=== PATIENT | female | born 1945 | race Caucasian/White ===

== ENCOUNTER 2017-06-18 07:57 | Day surgery (SDC) | payer MEDICARE, BC ==
[~2017-06-18] VITALS: Ht 160 cm; Wt 48.3 kg
[~2017-06-18 07:57] MED LIST: KEPPRA PO
[2017-06-18 08:22] VITALS: Ht 160 cm; Wt 48.3 kg
[2017-06-18] MEDS ORDERED: TYKE250 PO (08:39)
[2017-06-18] MEDS ORDERED: [UNRECOGNIZED DRUG - CODE] PO (08:39)
[2017-06-18] MEDS ORDERED: LIDOCAINE 2% (SDV) 5 ML INJ ONE (08:40)
[2017-06-18] MEDS ORDERED: PROPOFOL 60 ML ONE (08:40)
[2017-06-18 08:53] VITALS: BP 140/64; PULSE 61; RESP 22
--- NOTE | 2017-06-18 09:34 | OPPN ---
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
[2017-06-18 09:58] VITALS: BP 115/61; RESP 18
--- NOTE | 2017-06-18 10:12 | GILP ---
DATE OF PROCEDURE: 06/18/2017 SURGEON: Azeem Osorio MD. PROCEDURE PERFORMED: 1. Esophagogastroduodenoscopy and biopsy. 2. Colonoscopy. PREOPERATIVE DIAGNOSES: 1. Chronic heartburn. 2. History of esophageal ulcer. 3. Change in the bowel habits. 4. Rectal bleeding. POSTOPERATIVE DIAGNOSES: 1. Hiatal hernia. 2. Reflux esophagitis. 3. Gastritis with erosions. 4. Gastric mucosal biopsies were taken for Helicobacter pylori test. 5. Colonoscopy all the way to the cecum. 6. Poor prep making the exam somewhat suboptimal. 7. Internal hemorrhoids. 8. No colon neoplasm was identified. INDICATION: Ms Nicolle Ryan is a 72-year-old female patient who had chronic heartburn not responding to therapy. The patient also noticed the change in the bowel habits and rectal bleeding. The patient was scheduled for endoscopy and colonoscopy for further evaluation. The procedures and possible complications were well explained to the patient. She understood and consented to the procedure. DESCRIPTION OF PROCEDURE: Under influence of anesthesia, the gastroscope was carefully introduced into the esophagus. Under direct vision, it was advanced to the stomach, into the pylorus, into the duodenal bulb, and descending duodenum. FINDINGS: ESOPHAGUS: The patient had reflux esophagitis and erosions. STOMACH: The patient had gastritis with erosions. Gastric mucosal biopsies were taken for Helicobacter pylori test. Duodenum was normal. COLONOSCOPY: The colonoscope was carefully introduced in the rectum. Under direct vision, it was advanced all the way to the cecum. FINDINGS: The patient had poor prep making the exam suboptimal. The patient was noted to have internal hemorrhoids. No gross neoplasm was identified. The patient tolerated the procedure very well. There was no complication from the procedure. At the end of procedure, she was awake with stable vital signs and she was discharged home in care of her family. IMPRESSION: Please see postop diagnoses. PLAN: 1. Omeprazole 40 mg orally every morning. 2. Await Helicobacter pylori test report. 3. Next screening colonoscopy in 10 years. Dictated By: MD RANJEET Benson/usman/ricky /Document#: [id number]
--- NOTE | 2017-06-19 10:18 | CONS ---
DATE OF ADMISSION: DATE OF CONSULTATION: 06/04/2017 HISTORY OF PRESENT ILLNESS: I thank you very much for this kind referral. The patient is a 72-year-old female patient, who has been referred to me for further evaluation of heartburn, not responding to therapy. The patient has history of esophageal ulcer. She is not taking any nonsteroidal anti-inflammatory agents. Her appetite has been good and no history of weight loss. No gallstones or liver disease. Patient complains of rectal bleeding. She has history of colon polyps. Not hypertensive or diabetic. No heart disease, lung problem, or kidney disease. She has history of seizure disorder. The patient has metastatic breast cancer and she is in remission. SOCIAL HISTORY: Nonsmoker. No alcohol abuse. FAMILY HISTORY: The patient's father had esophageal cancer. ALLERGIES: NO DRUG ALLERGIES. MEDICATIONS: Keppra, Xeloda, Tykerb. PHYSICAL EXAMINATION: GENERAL: She is 5 feet, 3 inches tall, weighs 108 pounds. HEART: Normal heart sounds. LUNGS: Clear. ABDOMEN: Soft. No masses. Normal bowel sounds. RECTAL: Examination deferred per the patient's request, will be done at the time of colonoscopy. NEUROLOGIC: Normal neurological examination. IMPRESSION: 1. Chronic heartburn and history of esophageal ulcer. 2. Patient's father had esophageal cancer. 3. Rectal bleeding. 4. History of colon polyps. 5. Metastatic breast cancer. 6. seizure disorder. PLAN: Endoscopy and colonoscopy for further evaluation. The procedures and possible complications were well explained to the patient. She understands and consents to the procedures. I thank you once again. With warmest personal regards. Patient Name: Nicolle Cruz Dictated By: MD RANJEET Benson/usman/teressa /Document#: [id number] GUSTAVO
== END 2017-06-18 10:32 | disposition home or self-care (01) ==
LOC: GIL 07:57
PROVIDERS: ATTEND Internal Medicine Gastroenterology
DX: R19.4 Change in bowel habit (principal); K21.0 Gastro-esophageal reflux disease with esophagitis; K29.60 Other gastritis without bleeding; K64.8 Other hemorrhoids; Z85.3 Personal history of malignant neoplasm of breast
CPT/HCPCS: 87081